=== PATIENT | male | born 1975 | race Caucasian/White ===

== ENCOUNTER 2020-01-19 17:24 | Emergency (ER) | payer OTHER ==
[~2020-01-19] VITALS: Ht 167.6 cm; Wt 77.0 kg
[2020-01-19 21:26] LABS: BASOPHILS % 0.4 % (0.0-2.0); EOSINOPHILS % 1.8 % (0.0-5.0); HEMOGLOBIN. 14.2 g/dL (14.0-18.0); LYMPHOCYTES % 16.8 % (20.0-50.0); MEAN CORPUSCULAR HEMOGLOBIN 32.9 pg (28.0-32.0); MEAN CORPUSCULAR VOLUME 95.2 fL (80.0-94.0); MEAN PLATELET VOLUME 8.6 fl (7.4-10.4); MONOCYTES % 4.9 % (2.0-8.0); NEUTROPHILS % 76.1 % (40.0-76.0); PLATELET 222 x1000/uL (130-400); RED CELL DISTRIBUTION WIDTH 12.9 % (11.6-14.6)
[2020-01-19 21:33] LABS: CHLORIDE 106 mEq/L (98-107)
[2020-01-20 00:50] VITALS: BP 112/72
== END 2020-01-20 00:51 | disposition home or self-care (01) ==
LOC: ER 17:24
DX: R07.89 Other chest pain (principal); R00.2 Palpitations; E78.00 Pure hypercholesterolemia, unspecified
CPT/HCPCS: 36415; 71045; 80053; 84484; 85025; 93005; 99285

== ENCOUNTER 2023-05-18 22:13 | Emergency (ER) | payer OTHER ==
[~2023-05-18] VITALS: Ht 167.6 cm; Wt 70.0 kg
[2023-05-18 23:00] VITALS: BP 119/73; O2SAT 97
[2023-05-18] MEDS ORDERED: ACETAMINOPHEN 325MG TABLET PO ONE (23:30)
[2023-05-19] MEDS ORDERED: IBUP-1523 MT (01:56)
[2023-05-19] MEDS ORDERED: TOPUD MT (01:56)
[2023-05-19 02:25] VITALS: PULSE 90; RESP 16; TEMP 98.5
== END 2023-05-19 02:26 | disposition home or self-care (01) ==
LOC: ER 22:13
DX: S60.221A Contusion of right hand, initial encounter (principal); X58.XXXA Exposure to other specified factors, initial encounter; Y93.89 Activity, other specified; Y92.89 Other specified places as the place of occurrence of the external cause; Y99.8 Other external cause status; E78.00 Pure hypercholesterolemia, unspecified
CPT/HCPCS: 73130; 99283